=== PATIENT | male | born 1960 | race Native Hawaiian/Other Pacific Islander ===

== ENCOUNTER 2020-11-11 08:38 | Outpatient (CLI) | payer BC, OTHER | END 2020-11-11 19:21 | disposition home or self-care (01) | LOC: INF 08:38 | PROVIDERS: ATTEND Internal Medicine | DX: Z23 Encounter for immunization (principal) | CPT/HCPCS: 96372 ==

== ENCOUNTER 2020-12-16 08:31 | Outpatient (CLI) | payer BC, OTHER | END 2020-12-16 19:25 | disposition home or self-care (01) | LOC: INF 08:31 | PROVIDERS: ATTEND Internal Medicine | DX: Z23 Encounter for immunization (principal) | CPT/HCPCS: 96372 ==